=== PATIENT | male | born 1955 | race Caucasian/White ===

== ENCOUNTER 2016-11-19 16:24 | Inpatient (IN) | payer OTHER ==
[~2016-11-19] VITALS: Ht 172.7 cm; Wt 81.7 kg
[2016-11-19 18:18] LABS: BASOPHIL % 0.2 % (0-2); RED CELL DISTRIBUTION WIDTH 12.7 % (11.5-14.5)
[2016-11-19 18:37] LABS: CALCIUM 7.9 mg/dL (8.5-10.1); CARBON DIOXIDE 24.2 mmol/L (21-32); CHLORIDE SERUM 107 mmol/L (98-107); CREATININE SERUM 0.7 mg/dL (0.7-1.3); GFR1 > 60 mL/min; GLUCOSE SERUM 109 mg/dL (74-106); POTASSIUM SERUM 3.2 mmol/L (3.5-5.1); SODIUM SERUM 138 mmol/L (136-145)
[2016-11-19 18:39] LABS: PLATELET COUNT 95 x10^3mcL (130-400)
[2016-11-19] MEDS ORDERED: DEPAKOTE500 MG PO (18:41)
[2016-11-19] MEDS ORDERED: HALOPERIDOL10 MG PO (18:41)
[2016-11-19] MEDS ORDERED: REM15 PO (18:41)
[2016-11-19] MEDS ORDERED: SYN1 PO (18:42)
[2016-11-19] MEDS ORDERED: OLANZAPINE10 MG PO (18:43)
[2016-11-19] MEDS ORDERED: COG1 PO (18:43)
[2016-11-19] MEDS ORDERED: MULTI-VITAMINS1 TAB PO (18:43)
[2016-11-19 18:49] LABS: ALKALINE PHOSPHATASE 52 U/L (46-116); ALT/SGPT 15 U/L (16-63); AST/SGOT 17 U/L (15-37); BILIRUBIN TOTAL 0.38 mg/dL (0.20-1.00); T4(THYROXINE) 7.9 ug/dL (4.7-13.3); TOTAL PROTEIN, SERUM 6.6 g/dL (6.4-8.2)
[2016-11-19 18:54] LABS: CHOLESTEROL 128 mg/dL (<200)
[2016-11-19 19:12] LABS: microscopic required? YES; urine erythrocyte 3+ (NEGATIVE)
[2016-11-19 20:33] VITALS: BP 91/53
[2016-11-19 20:34] LABS: MAGNESIUM 1.9 mg/dL (1.8-2.4); PHOSPHOROUS 2.7 mg/dL (2.5-4.9)
[2016-11-19 20:46] LABS: AMPHETAMINE QUAL UR NONE DETECTED (NEG <=1000)
[2016-11-20 03:37] LABS: BASOPHIL % 0.4 % (0-2); PLATELET COUNT 93 x10^3mcL (130-400); RED CELL DISTRIBUTION WIDTH 13.1 % (11.5-14.5)
[2016-11-20 04:38] LABS: CALCIUM 7.3 mg/dL (8.5-10.1); CARBON DIOXIDE 25.8 mmol/L (21-32); CHLORIDE SERUM 110 mmol/L (98-107); CREATININE SERUM 0.6 mg/dL (0.7-1.3); GFR1 > 60 mL/min; GLUCOSE SERUM 83 mg/dL (74-106); POTASSIUM SERUM 3.8 mmol/L (3.5-5.1); SODIUM SERUM 141 mmol/L (136-145)
[2016-11-20 05:57] VITALS: BP 102/72
[2016-11-20 09:45] VITALS: BP 95/55
[2016-11-20 13:24] VITALS: BP 100/68
[2016-11-20 17:38] VITALS: BP 101/65
[2016-11-20 21:41] VITALS: BP 116/73
[2016-11-21 05:56] VITALS: BP 103/59
[2016-11-21 06:42] LABS: CALCIUM 7.8 mg/dL (8.5-10.1); CARBON DIOXIDE 26.5 mmol/L (21-32); CHLORIDE SERUM 107 mmol/L (98-107); CREATININE SERUM 0.5 mg/dL (0.7-1.3); GFR1 > 60 mL/min; GLUCOSE SERUM 69 mg/dL (74-106); POTASSIUM SERUM 3.6 mmol/L (3.5-5.1); SODIUM SERUM 140 mmol/L (136-145)
[2016-11-21 06:54] LABS: BASOPHIL % 0.5 % (0-2); RED CELL DISTRIBUTION WIDTH 12.7 % (11.5-14.5)
[2016-11-21 06:55] LABS: PLATELET COUNT 90 x10^3mcL (130-400)
[2016-11-21 08:59] VITALS: BP 104/67
[2016-11-21 13:26] VITALS: BP 116/76
[2016-11-21 17:23] VITALS: BP 109/69
[2016-11-21 21:24] VITALS: BP 103/68
[2016-11-22 05:16] VITALS: BP 110/67
[2016-11-22 07:01] LABS: CALCIUM 7.7 mg/dL (8.5-10.1); CARBON DIOXIDE 26.9 mmol/L (21-32); CHLORIDE SERUM 109 mmol/L (98-107); CREATININE SERUM 0.5 mg/dL (0.7-1.3); GFR1 > 60 mL/min; GLUCOSE SERUM 83 mg/dL (74-106); POTASSIUM SERUM 3.5 mmol/L (3.5-5.1); SODIUM SERUM 139 mmol/L (136-145)
[2016-11-22 10:03] VITALS: BP 113/71
[2016-11-22] MEDS ORDERED: LEVAQUIN750 MG PO (13:01)
[2016-11-22 14:50] VITALS: BP 113/71
[2016-11-22 17:07] VITALS: BP 110/69
[2016-11-22 20:56] VITALS: BP 123/81
== END 2016-11-22 20:30 | DRG 815 ==
LOC: ED 16:24 → DU 19:32 → MU 19:32 → DU 20:14 → MU 11-21 12:41
PROVIDERS: Emergency Medicine; ADMIT Family Medicine
DX: T67.0XXA Heatstroke and sunstroke, initial encounter (principal); N17.0 Acute kidney failure with tubular necrosis; G93.41 Metabolic encephalopathy; E44.0 Moderate protein-calorie malnutrition; F20.0 Paranoid schizophrenia; D69.6 Thrombocytopenia, unspecified; E83.51 Hypocalcemia; E86.0 Dehydration; N39.0 Urinary tract infection, site not specified; E87.6 Hypokalemia; D64.9 Anemia, unspecified; F17.210 Nicotine dependence, cigarettes, uncomplicated; X30.XXXA Exposure to excessive natural heat, initial encounter; Y93.89 Activity, other specified; Y92.048 Other place in boarding-house as the place of occurrence of the external cause; Z68.27 Body mass index [BMI] 27.0-27.9, adult
CPT/HCPCS: 82962; 83880; 97110-GP; G0480; J0696; J3480; J7030; Q0092

== ENCOUNTER 2018-10-10 21:10 | Inpatient (IN) | payer OTHER, MEDICARE ==
[~2018-10-10] VITALS: Ht 172.7 cm; Wt 84.8 kg
[~2018-10-10 21:10] MED LIST: COG1 PO; DEPAKOTE500 MG PO; HALOPERIDOL10 MG PO; LEVAQUIN750 MG PO; MULTI-VITAMINS1 TAB PO; OLANZAPINE10 MG PO; REM15 PO; SYN1 PO
[2018-10-10 21:13] VITALS: Ht 172.7 cm; Wt 84.8 kg
--- NOTE | 2018-10-10 21:20 | NUR ---
PT BIBA FROM [facility]. PER MEDIC PT'S ROOMATE CALLED 911 D/T PT BEING LETHARGIC AND STS "LIMPING MORE THAN USUAL." MEDIC STS PEOPLE AND [facility] DID NOT KNOW PT'S MEDICAL HX. PT ARRIVED TO ED OPENING EYES TO VERBAL, BUT NOT FOLLOWING COMMANDS. PT WARM TO TOUCH. PT PLACED IN GOWN. CONNECTED TO FULL CM. SKIN TO PT'S FEET BILAT NOTED WITH SCATTERED NON-RAISED RED SPOTS. PT ALSO RESPONDS TO PAINFUL STIMULI. PT NOTED WITH LARGE SURGICAL SCAR AND INDENTATION OF LEFT CHEST EXTENDING TO LT RIB. NO ERYTHEMA NOTED TO AREA. PT IN VIEW OF NURSES STATION IN ROOM 4.
[2018-10-10 21:50] LABS: BASOPHIL % 0.1 % (0-2); PLATELET COUNT 177 x10^3mcL (130-400); RED CELL DISTRIBUTION WIDTH 13.5 % (11.5-14.5)
[2018-10-10 21:58] LABS: CALCIUM 8.6 mg/dL (8.5-10.1); CARBON DIOXIDE 25.6 mmol/L (21-32); CHLORIDE SERUM 105 mmol/L (98-107); CREATININE SERUM 0.9 mg/dL (0.7-1.3); GFR1 > 60 mL/min; GLUCOSE SERUM 112 mg/dL (74-106); POTASSIUM SERUM 3.8 mmol/L (3.5-5.1); SODIUM SERUM 141 mmol/L (136-145)
[2018-10-10 22:03] LABS: ALBUMIN 3.3 g/dL (3.4-5.0); ALKALINE PHOSPHATASE 52 U/L (46-116); ALT/SGPT 23 U/L (16-63); AST/SGOT 15 U/L (15-37); BILIRUBIN TOTAL 0.4 mg/dL (0.20-1.00); TOTAL PROTEIN, SERUM 7.2 g/dL (6.4-8.2)
[2018-10-10 22:32] LABS: microscopic required? YES; urine erythrocyte 1+ (NEGATIVE)
--- NOTE | 2018-10-10 22:34 | NUR ---
PT REMAINS CONNECTED TO FULL CM. NO ACUTE DISTRESS NOTED. COOLING MEASURES REMAINS IN PLACE.
--- NOTE | 2018-10-10 23:37 | NUR ---
PT REMAINS CONNECTED TO FULL CM. ICE PACKS REPLACED, COOLING MEASURES CONTINUED.
--- NOTE | 2018-10-11 00:34 | NUR ---
PT RESPONDS TO VERBAL STIMULI, ABLE TO STATE NAME AND . RESP E/U, NO DISTRESS NOTED. PT REMAINS CONNECTED TO FULL CM.
--- NOTE | 2018-10-11 01:20 | NUR ---
REPORT GIVEN TO TASHA SHEEHAN.
--- NOTE | 2018-10-11 02:21 | NUR ---
REPORT GIVEN TO CONFERENCE COORDINATOR CHRIS
[2018-10-11 02:24] LABS: MAGNESIUM 1.8 mg/dL (1.8-2.4); PHOSPHOROUS 2.7 mg/dL (2.5-4.9)
--- NOTE | 2018-10-11 02:40 | NUR ---
REC'D PT FROM ED VIA [facility] ACCOMPANIED BY NURSE. PT TRANSFERRED FROM [facility] TO BED. BIBA S/P FALL FROM [facility] IN [place]. PT LETHARGIC AND DROWSY. ORIENTED TO SELF AND PLACE, "HOSPITAL," ONLY. REORIENTED TO TIME. SPEECH VERY GARBLED AND VERY DIFFICULT TO UNDERSTAND. UNABLE TO FULLY COMPLETE ASSESSMENT D/T INAPPROPRIATE COMMUNICATION. PT ABLE TO FOLLOWS COMMANDS. PUPILS EQUAL AND SLUGGISH. TELE 1, NSR. NO S/SX OF CP. NO SIGNS OF DISTRESS NOTED. BREATHING EVEN/UNLABORED ON RA, SPO2 95%. PITTING EDEMA TO BUE/BLE. ABD SOFT/ROUND/OBESE. NO GRIMACE UPON PALPATION. LAST BM UNKNOWN. PT STRAIGHT CATH'D IN ED FOR URINE COLLECTION. UNSURE IF PT URINATES NORMALLY. GEN WEAKNESS. REPORTS AMBULATING ON HIS OWN. MEGHAN FEET RED SPOTS. RASH NOTED TO L CHEST, L BACK, AND BUE. MOST PROMINENTLY ON THE L CHEST. ALSO NOTED L CHEST/ L BACK SCARRING. PT UNABLE TO TELL ME WHERE SCAR IS FROM. IV TO RH PATENT AND INFUSING REMAINDER OF 1L NS BOLUS FROM ED. ORIENTED TO DEVICES AND SURROUNDINGS. CALL LIGHT WITHIN REACH, BED AT LOWEST POSITION, BED ALARM ON. WILL CONTINUE TO MONITOR.
[2018-10-11 03:32] VITALS: BP 127/76
[2018-10-11 04:30] LABS: AMPHETAMINE QUAL UR NONE DETECTED (See below)
[2018-10-11 05:45] VITALS: BP 110/75
--- NOTE | 2018-10-11 05:50 | NUR ---
PT RESTING IN BED WITH EYES CLOSED. PT HAS BEEN SLEEPING SINCE ADMISSION. AWAKENS WITH VERBAL STIMULI. SPEECH STILL GARBLED AND DIFFICULT TO UNDERSTAND. RESPIRATIONS EVEN/UNLABORED. IV TO RH INFUSING. CALL LIGHT WITHIN REACH, BED AT LOWEST POSITION, BED ALARM ON. WILL ENDORSE TO DAY NURSE.
--- NOTE | 2018-10-11 08:27 | NUR ---
AT 0725 - RECEIVED PATIENT FROM NIGHT NURSE. PATIENT LYING IN BED WITH EYES CLOSED. APPEARS DROWSY. ULTRASOUND AT BEDSIDE DOING U/S OF KIDNEY. IV INFUSING NS AT 100 ML/HR. MONITOR SHOWING SINUS RHYTHM; RATE 68. AT 0800 - LAB AT BEDSIDE, ATTEMPTING TO COLLECT BLOOD. AT 0820 - PATIENT ROUSABLE. ORIENTED TO PERSON, PLACE AND SITUATION. REMEMBERS FALLING IN THE SHOWER. ASKING HOW LONG HE WILL BE IN HOSPITAL. SPEECH CLEAR BUT PATIENT KEEPS EYES CLOSED AT ALL TIMES.
[2018-10-11 08:50] LABS: BASOPHIL % 0.5 % (0-2); PLATELET COUNT 144 x10^3mcL (130-400); RED CELL DISTRIBUTION WIDTH 13.5 % (11.5-14.5)
[2018-10-11 08:59] LABS: CALCIUM 8.1 mg/dL (8.5-10.1); CARBON DIOXIDE 24.4 mmol/L (21-32); CHLORIDE SERUM 110 mmol/L (98-107); CREATININE SERUM 0.7 mg/dL (0.7-1.3); GFR1 > 60 mL/min; GLUCOSE SERUM 79 mg/dL (74-106); MAGNESIUM 1.9 mg/dL (1.8-2.4); PHOSPHOROUS 3.6 mg/dL (2.5-4.9); POTASSIUM SERUM 3.7 mmol/L (3.5-5.1); SODIUM SERUM 142 mmol/L (136-145)
[2018-10-11 09:18] VITALS: BP 130/67
--- NOTE | 2018-10-11 10:10 | NUR ---
PATIENT RESTING QUIETLY. TURNS IN BED FREELY. IV INFUSING NS AT 100ML/HR. RECEIVED ORDER FOR PT EVAL. PATIENT IS NPO CURRENTLY.
--- NOTE | 2018-10-11 10:27 | NUR ---
PATIENT STOOD ON SIDE OF BED TO USE URINAL. VOIDED 250 ML VILMA URINE. ASKING FOR PO DRINK. WILL SPEAK WITH BACK IN BED. BED EXIT ALARM ACTIVE.
--- NOTE | 2018-10-11 10:32 | NUR ---
SEEN BY DR PERERA DURING MORNING ROUNDS. SPOKE WITH DR MOORE ([facility]) ABOUT PATIENT'S NPO STATUS. OKAY TO TRY WATER PO. MADE AWARE OF AMMONIA LEVEL OF 55. SHE WILL ORDER LACTULOSE.
--- NOTE | 2018-10-11 10:55 | NUR ---
PHYSICAL THERAPY AT BEDSIDE.
--- NOTE | 2018-10-11 12:33 | NUR ---
PATIENT WAS ABLE TO SWALLOW WATER.
[2018-10-11 13:20] VITALS: BP 103/49
--- NOTE | 2018-10-11 14:32 | NUR ---
PATIENT IS MORE ALERT THIS AFTERNOON. SITTING UP IN BED WATCHING TV. GIVEN PO MEDS PER EMAR. NO SWALLOWING DIFFICULTIES NOTED. HAS BEEN ORDERED MECHANICAL SOFT DIET FOR DINNER.
--- NOTE | 2018-10-11 16:19 | NUR ---
PATIENT HAS AMBULATED TO BATHROOM WITH ASSISTANCE X 2. STEADY GAIT BUT SHUFFLING STEPS. HAS HAD LARGE BM.
[2018-10-11 17:13] VITALS: BP 119/71
--- NOTE | 2018-10-11 17:18 | NUR ---
PATIENT C/O PAIN IN FEET. PATIENT HAS RED, RAISED SPOTS ON FEET. CALLED AND SPOKE WITH DR MOORE. SHE WILL EXAMINE PATIENT.
--- NOTE | 2018-10-11 18:30 | NUR ---
RECEIVED ORDER FOR ELIMITE CREAM 5 % TREATMENT OF RASH ON PATIENT FEET. PHARMACIST ARPAN BUSBY RECCOMENDS THE FOLLOWING PROCESS: -APPLY CREAM TO AFFECTED AREA TONIGHT. LEAVE ROCK LATHER IF POSSIBLE. BREATHABLE DRESSING LIKE GAUZE, MAY BE APPLIED. - DISCARD ALL LINEN AT TIME OF APPLICATION - LEAVE TREATMENT ON SKIN FOR 12 HRS - WAS OFF IN AM AND AGAIN DISCARD ALL LINEN. PATIENT HAS BEEN PLACED ON CONTACT ISOLATION. PATIENT IS AWAKE, ALERT AND APPEARS ORIENTED TO PERSON, PALCE AND SITUATION. WAS ABLE TO EAT DINNER AND FEED SELF WHILE SITTING ON SIDE OF BE. VSS. RESPIRATIONS REGULAR. AMBUATING TO BATHROOM WITH ASSISTANCE, FOR TOILET NEEDS. HAS HAD SEVERAL BM SINCE TAKING LACTULOSE. IV INFUSING NS AT 100 ML/HR. WILL ENDORSE CARE OT NIGHT NURSE.
--- NOTE | 2018-10-11 19:30 | NUR ---
RECIEVED PT RESTING IN BED WITH NO ACUTE DISTRESS AT THIS TIME, ASSESSMENT PERFORMED AT THIS TIME, PT IS A/O X3 TO PERSON, PLACE, AND SITUATION, PT DENIES PAIN OR SOB AT THIS TIME, SAFETY PRECAUTIONS IN PLACE, WILL CONTINUE TO MONITOR
--- NOTE | 2018-10-11 19:36 | NUR ---
APPLIED PERMETHRIN TOPICAL CREAM TO AFFECTED AREAS PER ORDER AND CHANGED ALL LINENS
[2018-10-11 22:13] VITALS: BP 112/67
--- NOTE | 2018-10-11 22:45 | NUR ---
PT RESTING IN BED WITH EYES CLOSED, NO ACUTE DISTRESS NOTE, EASILY AROUSABLE TO VERBAL STIMULI, PT DENIES PAIN OR SOB, SAFETY PRECAUTIONS IN PLACE, WILL CONTINUE TO MONITOR.
--- NOTE | 2018-10-12 00:10 | NUR ---
PT RESTING IN BED, WITH NO ACUTE DISTRESS AT THIS TIME, PT IS A/OX [address] AND SITUATION, PT DENIES PAIN AT THIS TIME, SAFETY PRECAUTIONS IN PLACE WILL CONTINUE TO MONITOR.
--- NOTE | 2018-10-12 02:37 | NUR ---
PT RESTIN GWITH EYES CLOSED, NO ACUTE RESPIRATORY DISTRESS NOTED, RESPIRATIONS EVEN AND UNLABORE. SAFETY PRECAUTIONS IN PLACE, WILL CONTINUE TO MONITOR
[2018-10-12 05:05] VITALS: BP 144/63
--- NOTE | 2018-10-12 05:11 | NUR ---
PT RESTED COMFORTABLY THROUGH THE NIGHT WITH NO ACUTE DISTRESS NOTED THROUGH THE SHIFT, PT REMAINED A/O X3 TO PERSON, PLACE, AND SITUATION THROUGH THE NIGHT, PT DENIED PAIN OR SOB THROUGH THE NIGHT, TOPICAL CREAM FOR BED BUGS APPLIED AT BEGINING OF SHIFT AND LINENS WERE CHANGED SAFETY PRECAUTIONS WERE MAINTAINED THROUGH THE SHIFT, WILL CONTINUE TO MONITOR AND ENDORSE CARE TO ONCOMING RN
[2018-10-12 06:31] LABS: BASOPHIL % 0.5 % (0-2); PLATELET COUNT 147 x10^3mcL (130-400); RED CELL DISTRIBUTION WIDTH 13.7 % (11.5-14.5)
[2018-10-12 06:42] LABS: MAGNESIUM 2.1 mg/dL (1.8-2.4); PHOSPHOROUS 3.6 mg/dL (2.5-4.9)
--- NOTE | 2018-10-12 07:00 | NUR ---
RECEIVED PT FROM [facility] END FINDER NURSE. PT RESTING IN BED, AOX3, RESP E/U ON RA. NO ACUTE DISTRESS NOTED. ON TELE 1 SHOWING NSR. IV TO R HAND W/ NO SIGNS OF INFILTRATION, IVF INFUSING WELL. GAUZE DRESSING APPLIED BILAT FEET CDI. BED IN LOWEST POSITION AND CALL LIGHT WITHIN REACH. CONTACT PRECAUTIONS IN PLACE. WILL CONTINUE TO MONITOR.
[2018-10-12 08:29] VITALS: BP 131/71
[2018-10-12] MEDS ORDERED: HALOPERIDOL5 MG PO (11:18)
[2018-10-12] MEDS ORDERED: MOT800 PO (11:25)
[2018-10-12] MEDS ORDERED: MULTI-VITAMIN1 EACH PO (11:26)
[2018-10-12] MEDS ORDERED: VITAMIN D32000 I2 PO (11:26)
[2018-10-12 12:06] VITALS: BP 117/65
--- NOTE | 2018-10-12 13:04 | NUR ---
PT SITTING UPRIGHT IN BED HAVING LUNCH, AOX3, RESP E/U ON RA. NO ACUTE DISTRESS NOTED AT THIS TIME, TOLERATING [facility] SOFT DIET WELL. BED IN LOWEST POSITION AND CALL LIGHT WITHIN REACH. WILL CONTINUE TO MONITOR.
--- NOTE | 2018-10-12 15:34 | NUR ---
PHYSICAL THERAPY DAILY NOTES CO-SIGN All documentation done by the [employer] Telephone Clerk for 10/12/18 has been reviewed. I agree with the documentation. Reviewed/Co-Signed by: Noreen Perkins PT Documentation Done by:MICHAEL CH PTA
[2018-10-12 16:55] VITALS: BP 117/65
[2018-10-12 17:05] VITALS: BP 101/65
--- NOTE | 2018-10-12 17:55 | NUR ---
PT DISCHARGED. REVIEWED VISIT SUMMARY, EDUCATIONAL PACKET AND FOLLOW-UP INSTRUCTIONS W/ PT/ PT AOX3, RESP E/U ON RA, VS STABLE, DENIES PAIN AT THIS TIME. IV TO R HAND REMOVED, CATH INTACT, GAUZE DRESSING APPLIED. PT AMBULATORY TO [place], ESCORTED BY JAS SWANN W/ NO ACUTE INCIDENCE.
== END 2018-10-12 18:05 | disposition home or self-care (01) | DRG 815 ==
LOC: ED 21:10 → DU 10-11 01:31
PROVIDERS: Emergency Medicine; ADMIT General Practice
DX: T67.0XXA Heatstroke and sunstroke, initial encounter (principal); N17.0 Acute kidney failure with tubular necrosis; G93.41 Metabolic encephalopathy; J18.1 Lobar pneumonia, unspecified organism; R65.10 Systemic inflammatory response syndrome (SIRS) of non-infectious origin without acute organ dysfunction; F20.0 Paranoid schizophrenia; E44.1 Mild protein-calorie malnutrition; E86.0 Dehydration; E03.9 Hypothyroidism, unspecified; W18.39XA Other fall on same level, initial encounter; Y93.89 Activity, other specified; Y92.091 Bathroom in other non-institutional residence as the place of occurrence of the external cause; Y99.8 Other external cause status; Z68.28 Body mass index [BMI] 28.0-28.9, adult
CPT/HCPCS: 87804; 97116-GP; 97530-GP; G0378; J0696; J7030; J7060; Q0092